=== PATIENT | female | born 1935 | race African-American/Black ===

== ENCOUNTER 2021-08-17 07:48 | Day surgery (SDC) | payer OTHER ==
[2021-08-15 12:28] VITALS: BMI 31.5
[2021-08-17] MEDS ORDERED: CIPROFLOXACIN 0.3% EYE DROPS 5 ML BOTTLE ONE (08:03)
[2021-08-17] MEDS ORDERED: TROPICAMIDE 1% OPHTH SOLN 15 ML BOTTLE ONE (08:03)
[2021-08-17] MEDS ORDERED: CYCLOPENTOLATE 2% OPHTH SOLN 2 ML BOTTLE ONE (08:03)
[2021-08-17] MEDS ORDERED: PHENYLEPHRINE 2.5% OPHTH SOLN 15 ML BOTTLE ONE (08:03)
[2021-08-17] MEDS ORDERED: CYCLOPENTOLATE 2% OPHTH SOLN 2 ML BOTTLE OS ONE ×3 (08:15→08:25)
[2021-08-17] MEDS ORDERED: CIPROFLOXACIN 0.3% EYE DROPS 5 ML BOTTLE OS ONE ×3 (08:15→08:25)
[2021-08-17] MEDS ORDERED: [UNRECOGNIZED DRUG - OTHER] OS ONE ×3 (08:15→08:25)
[2021-08-17] MEDS ORDERED: TROPICAMIDE 1% OPHTH SOLN 15 ML BOTTLE OS ONE ×3 (08:15→08:25)
[2021-08-17] MEDS ORDERED: PHENYLEPHRINE OS ONE ×3 (08:15→08:25)
[2021-08-17] MEDS ORDERED: LIDOCAINE 1% P/F 10 MG/ML VIAL ONE (09:33)
[2021-08-17] MEDS ORDERED: TETRACAINE 0.5% OPHTH SOLN 2 ML BOTTLE ONE (09:33)
[2021-08-17] MEDS ORDERED: BSS (NA/CA/MG/K) BALANCED SALT SOLUTION OPHTH SOLN 15 ML BOTTLE ONE (09:33)
[2021-08-17] MEDS ORDERED: CARBACHOL 0.01% INTRA-OCULAR 1.5 ML VIAL ONE (09:33)
[2021-08-17] MEDS ORDERED: NEO/POLYMYX B SULF/DEXAMETH OPHTHALMIC 5ML BOTTLE ONE (09:33)
[2021-08-17] MEDS ORDERED: MIDAZOLAM HCL 2 MG/2 ML SINGLE DOSE VIAL ONE (10:14)
[2021-08-17 10:46] VITALS: TEMP 97.3
[2021-08-17 11:00] VITALS: BP 125/65; PULSE 68
== END 2021-08-17 11:05 | disposition home or self-care (01) ==
LOC: FASU 07:48
PROVIDERS: ATTEND Ophthalmology
PROC: 08RK3JZ Replacement of Left Lens with Synthetic Substitute, Percutaneous Approach (ICD-10-PCS; principal; 2021-08-17 10:19)
DX: H26.8 Other specified cataract (principal)